=== PATIENT | male | born 2000 | race Caucasian/White ===

== ENCOUNTER 2019-05-30 15:53 | Emergency (ER) | payer OTHER ==
[~2019-05-30] VITALS: Ht 170.2 cm; Wt 63.4 kg
[2019-05-30 15:54] VITALS: BP 141/89
[2019-05-30] MEDS ORDERED: DOXY-350 PO (16:00)
[2019-05-30] MEDS ORDERED: KETOROLAC 60 MG/2 ML VIAL (J1885) IM ONE (16:30)
[2019-05-30] MEDS ORDERED: IBUP-1114 PO (16:58)
--- NOTE | 2019-05-31 07:38 | REP ---
CHEST: Two views. There is no evidence of acute infiltrate. No pleural effusion is seen. The heart is normal in size. The mediastinal silhouette is unremarkable. The visualized osseous structures are intact. IMPRESSION: No acute pulmonary disease. Electronically Signed by Edwin Haywood MD 06/01/2019 09:47 A
== END 2019-05-30 17:06 | disposition home or self-care (01) ==
LOC: M ED 15:53
DX: M94.0 Chondrocostal junction syndrome [Tietze] (principal); B95.62 Methicillin resistant Staphylococcus aureus infection as the cause of diseases classified elsewhere; F17.220 Nicotine dependence, chewing tobacco, uncomplicated
CPT/HCPCS: 71046; 87070; 87077; 87186; 96372; 99283; J1885